=== PATIENT | female | born 1990 | race Two or more races ===

== ENCOUNTER 2023-09-27 23:28 | Emergency (ER) | payer OTHER ==
[~2023-09-27] VITALS: Ht 154.9 cm; Wt 74.4 kg
[2023-09-28] MEDS ORDERED: RINGERS SOLUTION,LACTATED 1,000 ML IV STA (01:39)
[2023-09-28] MEDS ORDERED: MEPERIDINE HCL/PF 25 MG/ML VIAL IM STA (01:40)
[2023-09-28] MEDS ORDERED: KETOROLAC TROMETHAMINE 30 MG VIAL IV STA (01:40)
[2023-09-28] MEDS ORDERED: PROMETHAZINE HCL 25 MG/ML AMPUL IM STA (01:41)
[2023-09-28] MEDS ORDERED: HYOSCYAMINE SULFATE 0.125 MG TAB.SUBL SL ONE (01:45)
[2023-09-28] MEDS ORDERED: PROMETHAZINE HCL 25 MG/ML AMPUL ONE (01:50)
[2023-09-28] MEDS ORDERED: HYOSCYAMINE SULFATE 0.125 MG TAB.SUBL ONE (01:50)
[2023-09-28] MEDS ORDERED: KETOROLAC TROMETHAMINE 30 MG VIAL ONE (01:50)
[2023-09-28] MEDS ORDERED: BARIUM SULFATE 450 ML ORAL.SUSP PO ONE (02:28)
[2023-09-28 02:34] LABS: HEMATOCRIT 37.1 % (36.0-45.00); HEMOGLOBIN 12.8 g/dL (12.0-15.00); MEAN CELL VOLUME 86.9 fL (80.00-100.00); MEAN CORPUSCULAR HEMOGLOBIN 30.1 pg (27.00-32.0); MEAN CORPUSCULAR HGB CONC 34.6 g/dl (32.0-36.0); PLATELET COUNT 278 K/uL (150-450); RED BLOOD COUNT 4.27 M/uL (4.00-6.00); RED CELL DISTRIBUTION WIDTH 12.8 % (11.5-14.5)
[2023-09-28 02:45] LABS: PARTIAL THROMBOPLASTIN TIME 31.8 SECONDS (22.0-34.0); PROTHROMBIN TIME 10.9 SECONDS (9.0-11.5)
[2023-09-28 02:47] LABS: CALCIUM 9.1 mg/dL (8.5-10.1); CREATININE SERUM 0.63 mg/dL (0.55-1.02); GFR 109.51; POTASSIUM 3.37 mEq/L (3.5-5.1)
[2023-09-28 05:08] LABS: PH,URINE 5.5 (5.0-8.0); URINE APPEARANCE Clear; URINE BILIRRUBIN Negative (NEGATIVE); URINE BLOOD Small; URINE COLOR Dark Yellow; URINE GLUCOSE Negative (NEGATIVE); URINE KETONE 15 (NEGATIVE); URINE LEUKOCYTE Negative; URINE NITRATE Negative; URINE PROTEIN Trace (NEGATIVE)
[2023-09-28 05:11] LABS: URINE BACTERIA 917.2 uL (0.0-1933); URINE EPITHELIAL CELLS 24.2 uL (0.0-38.8); URINE RBC 166.2 uL (0.0-20.8); URINE WBC 13.9 uL (0.0-23.2)
== END 2023-09-28 07:22 | disposition home or self-care (01) ==
LOC: ER 23:29
DX: R10.2 Pelvic and perineal pain (principal); N83.209 Unspecified ovarian cyst, unspecified side